=== PATIENT | female | born 1995 | race Caucasian/White ===

== ENCOUNTER 2021-02-03 11:35 | Emergency (ER) | payer BC ==
[2021-02-03] MEDS ORDERED: SODIUM CHLORIDE 0.9% 50 ML IVPB ONE (12:30)
--- NOTE | 2021-02-03 12:33 | ED ---
General Adult HPI - General Chief complaint: Upper Respiratory Infection Stated complaint: 11 wks preg/covid+ Time Seen by Provider: 02/03/21 11:52 Source: patient, RN notes reviewed Mode of arrival: ambulatory Limitations: no limitations - History of Present Illness Initial comments: 25-year-old female resents to the emergency room for a chief complaint of COVID +. Pt states that when she woke up this morning she had a slight cough. She went to work at [employer] where they did a rapid test. She reports that it came back positive. She does have a copy of the results. Patient was told by her doctor to come into the emergency room for antibody infusion because she is 11 weeks . Patient denies shortness of breath or chest pain.patient denies any related complaints such as bleeding or cramping Patient has no other complaints at this time including shortness of breath, chest pain, abdominal pain, nausea or vomiting, headache, or visual changes. - Related Data Allergies Allergy/AdvReac Type Severity Reaction Status Date / Time No Known Allergies Allergy Verified 02/03/21 11:40 Review of Systems ROS Statement: Those systems with pertinent positive or pertinent negative responses have been documented in the HPI. ROS Other: All systems not noted in ROS Statement are negative. Past Medical History Past Medical History: No Reported History History of Any Multi-Drug Resistant Organisms: None Reported Past Surgical History: No Surgical Hx Reported Past Psychological History: No Psychological Hx Reported Smoking Status: Never smoker Past Alcohol Use History: None Reported General Exam Limitations: no limitations General appearance: alert, in no apparent distress Head exam: Present: atraumatic Eye exam: Present: normal appearance, PERRL, EOMI. Absent: scleral icterus, conjunctival injection ENT exam: Present: normal exam, mucous membranes moist Neck exam: Present: normal inspection, full ROM. Absent: tenderness Respiratory exam: Present: normal lung sounds bilaterally. Absent: respiratory distress, wheezes Cardiovascular Exam: Present: regular rate, normal rhythm, normal heart sounds Course Vital Signs 02/03/21 11:37 Temperature 98.8 F Pulse Rate 95 Respiratory 22 Rate Blood Pressure 117/73 O2 Sat by Pulse 100 Oximetry Medical Decision Making - Medical Decision Making Patient was able to produce Covid positive result. She was given antibodies. She can be discharged home. She is to return here for any worsening symptoms. Disposition Clinical Impression: COVID-19 Disposition: HOME SELF-CARE Condition: Good Instructions (If sedation given, give patient instructions): Coronavirus Disease 2019 (COVID-19) Additional Instructions: Please take Tylenol for fever. Drink plenty of fluids. Follow-up with your doctor. Return to the emergency room for any worsening symptoms. Is patient prescribed a controlled substance at d/c from ED?: No Referrals: Maynor Nelson DO [Primary Care Provider] - 1-2 days Time of Disposition: 12:29
[2021-02-03] MEDS ORDERED: SOTROVIMAB (EUA) 500 MG in SODIUM CHLORIDE 0.9% 100 ML IVPB ONE (13:00)
[2021-02-03 14:41] VITALS: BP 128/70; PULSE 85; RESP 16; TEMP 98.2
== END 2021-02-03 14:39 | disposition home or self-care (01) ==
LOC: EC 11:35
DX: O98.511 Other viral diseases complicating pregnancy, first trimester (principal); U07.1 COVID-19; Z3A.11 11 weeks gestation of pregnancy
CPT/HCPCS: 99283; Q0247

== ENCOUNTER 2021-08-19 02:35 | Inpatient (IN) | payer BC ==
[2021-08-19] MEDS ORDERED: AMPICILLIN 2,000 MG in SODIUM CHLORIDE 0.9% 100 ML IVPB STA (04:20)
[2021-08-19] MEDS ORDERED: OXYTOCIN 10 UNIT/ML 1 ML VIAL IM PRN (04:24)
[2021-08-19] MEDS ORDERED: CARBOPROST TROMETHAMINE 250 MCG/ML 1 ML AMP IM PRN (04:24)
[2021-08-19] MEDS ORDERED: LIDOCAINE 0.5% (PF) 5 MG/ML (50 ML SDV) SQ PRN (04:24)
[2021-08-19] MEDS ORDERED: METHYLERGONOVINE 0.2 MG/ML 1 ML AMP IM PRN (04:24)
[2021-08-19] MEDS ORDERED: TERBUTALINE 1 MG/ML VIAL SQ PRN (04:24)
[2021-08-19] MEDS ORDERED: LACTATED RINGERS 1,000 ML IV SCH (04:30)
[2021-08-19 04:37] LABS: Basophils # (A) 0.1 k/uL (0-0.2); Basophils % (A) 1 %; Eosinophils # (A) 0.2 k/uL (0-0.7); Eosinophils % (A) 1 %; HCT 35.2 % (34.0-46.0); HGB 11.5 gm/dL (11.4-16.0); Lymphocytes # (A) 2.6 k/uL (1.0-4.8); Lymphocytes % (A) 13 %; MCH 30.9 pg (25.0-35.0); MCHC 32.7 g/dL (31.0-37.0); MCV 94.5 fL (80.0-100.0); Mean Platelet Volume 7.7; Monocytes # (A) 0.9 k/uL (0-1.0); Monocytes % (A) 4 %; Neutrophils # (A) 16.7 k/uL (1.3-7.7); Neutrophils % (A) 80 %; Platelet Count 314 k/uL (150-450); RBC 3.72 m/uL (3.80-5.40); WBC 20.8 k/uL (3.8-10.6)
--- NOTE | 2021-08-19 05:31 | P.HPOB ---
History of Present Illness H&P Date: 08/19/21 Chief Complaint: Labor at 39-4/7 weeks This is a 26-year-old 1 para 0 woman with an estimated due date of 08/22/2021 who is admitted at 39-3/7 weeks gestation in active labor. She denies vaginal bleeding or leakage of fluids. She had progressive cervical dilation during observation in triage and therefore is admitted. She is known group B strep positive. complicated by covert in the early . She's been followed with testing which is all been reassuring. Laboratory data: Blood type O+, antibody screen negative, rubella immune, VDRL nonreactive, hep Viktoriya surface antigen negative, HIV negative, gonorrhea and clinic cultures negative, glucose tolerance testing within normal limits, group B strep positive. Review of Systems All systems: negative Past Medical History Past Medical History: No Reported History History of Any Multi-Drug Resistant Organisms: None Reported Past Surgical History: No Surgical Hx Reported Past Anesthesia/Blood Transfusion Reactions: No Reported Reaction Past Psychological History: No Psychological Hx Reported Smoking Status: Never smoker Past Alcohol Use History: None Reported - Past Family History Father History Unknown: Yes Medications and Allergies Home Medications Medication Instructions Recorded Confirmed Type Aspirin 1 tab PO DAILY 08/19/21 08/19/21 History Pnv No.154/Iron Fum/Folic Acid 1 tab PO DAILY 08/19/21 08/19/21 History [ Plus Vitamin Tablet] Allergies Allergy/AdvReac Type Severity Reaction Status Date / Time No Known Allergies Allergy Verified 08/19/21 02:46 Exam Vital Signs Temp Pulse Resp BP 08/19/21 04:20 97.5 F L 62 16 135/85 Intake and Output 08/18/21 08/18/21 08/19/21 14:59 22:59 06:59 Other: Weight 68.492 kg Upon my initial evaluation targeted exam is performed. Patient is extremely uncomfortable with regular contractions. Cervix is 9 cm dilated 100% effaced and the vertex in the -1 station. Artificial rupture of membranes undertaken and clear fluid is noted. heart tones are category 1. She is megan spontaneously every 3-4 minutes. Results Result Diagrams: 08/19/21 04:30 Abnormal Lab Results - Last 24 Hours (Table) 08/19/21 Range/Units 04:30 WBC 20.8 H (3.8-10.6) k/uL RBC 3.72 L (3.80-5.40) m/uL Neutrophils # 16.7 H (1.3-7.7) k/uL Assessment and Plan (1) Spontaneous onset of labor Current Visit: Yes Status: Acute Code(s): ZVD7899 - SNOMED Code(s): 87761404 (2) GBS (group B Streptococcus carrier), +RV culture, currently Current Visit: Yes Status: Acute Code(s): O99.820 - STREPTOCOCCUS B CARRIER STATE COMPLICATING SNOMED Code(s): 1343035753258 (3) 39 weeks gestation of Current Visit: Yes Status: Acute Code(s): Z3A.39 - 39 WEEKS GESTATION OF SNOMED Code(s): 97139025 Plan: 26-year-old 1 para 0 woman admitted at 39-3/7 weeks gestation in active labor. She is group B strep positive. status currently reassuring by external monitoring. She is receiving prophylactic antibiotics. Anticipate normal spontaneous vaginal delivery.
[2021-08-19] MEDS ORDERED: OXYTOCIN 30 UNITS/500 ML NS 30 UNIT in SALINE 1 500ML.BAG IV SCH ×2 (07:15→08:15)
[2021-08-19] MEDS ORDERED: LANOLIN CREAM 5 GM TUBE TOPICAL PRN (08:07)
[2021-08-19] MEDS ORDERED: diphenhydrAMINE 50 MG/ML 1 ML VIAL IVP PRN ×2 (08:07)
[2021-08-19] MEDS ORDERED: ZOLPIDEM 5 MG TAB PO PRN (08:07)
[2021-08-19] MEDS ORDERED: SIMETHICONE 80 MG CHEWABLE PO PRN (08:07)
[2021-08-19] MEDS ORDERED: diphenhydrAMINE 25 MG CAP PO PRN (08:07)
[2021-08-19] MEDS ORDERED: HYDROCORTISONE 2.5% RECTAL CREAM 30 GM TUBE RECTAL PRN (08:07)
[2021-08-19] MEDS ORDERED: diphenhydrAMINE 50 MG CAP PO PRN (08:07)
[2021-08-19] MEDS ORDERED: BENZOCAINE/MENTHOL SPRAY 1 GM/SPRAY AEROSOL TOPICAL PRN (08:07)
--- NOTE | 2021-08-19 08:07 | P.PROBDLV ---
Vaginal Delivery Note - . Vaginal Delivery Note: Findings: Male infant in the vertex left occiput anterior position with Apgars of 9 at 1 minute and 9 at 5 minutes weighing 7 lbs. 11 oz., 3495 g. Third- degree perineal laceration. Intact, three-vessel cord. EBL 200 mL's. Delivery summary: This is a 26-year-old 1 para 0 woman who presented at 39-3/7 weeks gestation in spontaneous active labor. She progressed from 3 cm to 4-1/2 cm in triage and was admitted. She had an unremarkable progression to 9 cm dilated at which time artificial rupture of membranes is undertaken. Clear fluid was noted. She progressed to complete cervical dilation and began pushing with moderate maternal effort. Pitocin augmentation was ultimately initiated as contractions were irregular and spaced out. She had a 1 hour and 40 minutes second stage of labor. With she was repositioned, prepped and draped in the modified Nura position. Lidocaine was infused in the perineum for maternal analgesia. With additional maternal effort the head did deliver from the left occiput anterior position. The rest the delivered onto the field without difficulty. The nose and mouth were bulb suctioned and the was placed on the maternal abdomen. Eventually the cord was clamped and cut. Apgars were 9 at 1 minute and 9 at 5 minutes. The perineum was inspected and an irregular laceration was noted. 3-0 Vicryl suture was utilized to reapproximate the perirectal capsule in an interrupted fashion. The remainder of the laceration was then closed with an additional 3-0 Vicryl suture. An intact, three-vessel cord placenta was then delivered after approximately 10 minute third stage of labor. The rest of the vagina was inspected and no further lacerations were noted. The uterus was massaged and noted to be firm at the level of the umbilicus. She did receive Pitocin following delivery of the placenta. Careful vaginal and rectal exam were performed and the rectal mucosa was noted to be intact. All counts were correct and EBL was approximately 200 hours. Both mother and infant were doing well post delivery in the room.
[2021-08-19] MEDS: IBUPROFEN 600 MG TAB PO PRN ×3 (08:21→23:21)
[2021-08-19] MEDS: SENNOSIDES-DOCUSATE SODIUM 1 EACH TAB PO SCH ×2 (08:21→20:12)
[2021-08-19] MEDS ORDERED: AMPICILLIN 1,000 MG in SODIUM CHLORIDE 0.9% 50 ML IVPB SCH (08:30)
[2021-08-20 06:35] LABS: Anisocytosis Slight; HCT 47.6 % (34.0-46.0); MCH 36.6 pg (25.0-35.0); MCHC 33.4 g/dL (31.0-37.0); Macrocytosis Marked; Mean Platelet Volume 8.9; Platelet Count 267 k/uL (150-450); RBC 4.34 m/uL (3.80-5.40); RDW 16.3 % (11.5-15.5); WBC 18.8 k/uL (3.8-10.6)
[2021-08-20 06:37] LABS: HGB 15.9 gm/dL (11.4-16.0)
[2021-08-20 06:38] LABS: MCV 109.7 fL (80.0-100.0)
[2021-08-20 07:04] LABS: Anisocytosis (M) Present; Eosinophils # (M) 0.19 k/uL (0-0.7); Lymphocytes # (M) 5.64 k/uL (1.0-4.8); Monocytes # (M) 1.32 k/uL (0-1.0); Neutrophils # (M) 11.66 k/uL (1.3-7.7); Neutrophils % (M) 62 %; Nucleated Red Blood Cells 0 /100 WBC (0-0); Total Cells Counted 100
[2021-08-20] MEDS: ACETAMINOPHEN TAB 325 MG TAB PO PRN ×2 (08:22→19:33)
[2021-08-20] MEDS: SENNOSIDES-DOCUSATE SODIUM 1 EACH TAB PO SCH ×2 (09:51→22:23)
--- NOTE | 2021-08-20 11:21 | P.PNOBGVD ---
Subjective - Subjective Patient reports: Reports appetite normal, Reports voiding normally, Reports pain well controlled, Reports ambulating normally : doing well Objective - Latest Vital Signs Latest vital signs: Vital Signs Temp Pulse Resp BP Pulse Ox 08/20/21 08:00 98.4 F 66 17 111/70 99 08/20/21 00:00 98.8 F 87 16 109/70 98 08/19/21 20:00 98.6 F 86 15 139/91 08/19/21 16:00 98.7 F 77 16 107/72 98 08/19/21 11:59 98.1 F 64 16 126/72 97 Intake and Output 08/19/21 08/20/21 08/20/21 22:59 06:59 14:59 Intake Total 480 Balance 480 Intake: Oral 480 Other: # Voids 2 2 1 - Exam Extremities: Present: normal Abdomen: Present: normal appearance, soft Uterus: Present: normal, firm (The uterine fundus is Connick and nontender below the umbilicus.) - Labs Labs: Abnormal Lab Results - Last 24 Hours (Table) 08/20/21 Range/Units 05:50 WBC 18.8 H (3.8-10.6) k/uL Hct 47.6 H (34.0-46.0) % MCV 109.7 H D (80.0-100.0) fL MCH 36.6 H (25.0-35.0) pg RDW 16.3 H (11.5-15.5) % Neutrophils # (Manual) 11.66 H (1.3-7.7) k/uL Lymphocytes # (Manual) 5.64 H (1.0-4.8) k/uL Monocytes # (Manual) 1.32 H (0-1.0) k/uL Macrocytosis Marked A Assessment and Plan (1) Normal spontaneous vaginal delivery Current Visit: Yes Status: Acute Code(s): O80 - ENCOUNTER FOR FULL-TERM UNCOMPLICATED DELIVERY SNOMED Code(s): 18781707 Plan: Continue routine care. The infant remains under observation for lack of adequate group B strep prophylaxis. He will require a 48 hours day. As a result, I anticipate discharge home tomorrow pending no complications.
[2021-08-20] MEDS: IBUPROFEN 600 MG TAB PO PRN (13:53)
[2021-08-21 09:29] VITALS: BP 118/72; PULSE 74; RESP 16; TEMP 98.7
[2021-08-21] MEDS: SENNOSIDES-DOCUSATE SODIUM 1 EACH TAB PO SCH (09:29)
--- NOTE | 2021-08-21 10:44 | P.DS ---
Providers Date of admission: 08/19/21 03:58 Expected date of discharge: 08/21/21 Attending physician: Margareth Cunningham Primary care physician: Stated None - Discharge Diagnosis(es) (1) Normal spontaneous vaginal delivery Current Visit: Yes Status: Acute Hospital Course: The patient is a 26-year-old 1 para 0 admitted at 39-3/7 weeks by good dating parameters perches admitted in active labor with all signs reassuring. She is group B strep positive. Her only Occasionally the was Covid for which she had testing weekly after 32 weeks which was reassuring in nature. On labor and delivery, she had antibody prophylaxis started and progressed relatively rapidly through labor at which time she underwent artificial rupture of membranes for clear fluid. She did have Pitocin augmentation started as her contraction pattern spaced about ultimately pushed to a normal spontaneous vaginal delivery of a viable 7 lbs. 11 oz. baby boy with Apgars of 9 at 1 minute and 9 at 5 minutes. She did sustain a third degree laceration which was repaired in standard fashion. Her course was unremarkable with vital signs remained stable and her temperature was afebrile throughout. The infant had cultures drawn as antibody prophylaxis was not adequate and required a 48 hour observation. As a result, she was deemed stable for discharge on day #2 and was discharged home to follow-up in the office in 6 weeks' time routinely. Discharge instructions included calling for any significantly increased bleeding or foul-smelling lochia, significantly increased fever or abdominal pain, perineal complaints, breast complaints, or anything else that concerned her. She was additionally instructed to have nothing in the vagina for at least 6 weeks time to include intercourse. She understood her instructions and agrees to follow up as noted above. Discharge medications included continue vitamins as she has opted to breast-feed as well as [id number] analgesic pain medications as needed. Maternal blood type is O+ and rubella status is immune. Procedures: #1. Antibiotic prophylaxis #2. Artificial rupture of membranes #3. Pitocin augmentation #4. Normal spontaneous vaginal delivery #5. Repair of third- degree perineal laceration Patient Condition at Discharge: Stable Plan - Discharge Summary New Discharge Prescriptions: No Action Aspirin 1 tab PO DAILY Pnv No.154/Iron Fum/Folic Acid [ Plus Vitamin Tablet] 1 tab PO DAILY Discharge Medication List Aspirin 1 tab PO DAILY 08/19/21 [History] Pnv No.154/Iron Fum/Folic Acid [ Plus Vitamin Tablet] 1 tab PO DAILY 08/19/21 [History] Follow up Appointment(s)/Referral(s): Margareth Cunningham DO [Doctor of Osteopathic Medicine] - 6 Weeks Discharge Disposition: HOME SELF-CARE
== END 2021-08-21 11:30 | disposition home or self-care (01) | DRG 768 ==
LOC: FBPOP 02:35 → 4FBP 03:58
PROVIDERS: ADMIT Obstetrics & Gynecology; ATTEND Obstetrics & Gynecology Obstetrics
PROC: 10907ZC Drainage of Amniotic Fluid, Therapeutic from Products of Conception, Via Natural or Artificial Opening (ICD-10-PCS; principal; 2021-08-19)
PROC: 0DQR0ZZ Repair Anal Sphincter, Open Approach (ICD-10-PCS; principal; 2021-08-19)
PROC: 10E0XZZ Delivery of Products of Conception, External Approach (ICD-10-PCS; principal; 2021-08-19)
DX: O99.824 Streptococcus B carrier state complicating childbirth (principal); O70.20 Third degree perineal laceration during delivery, unspecified; Z37.0 Single live birth; Z3A.39 39 weeks gestation of pregnancy; Z28.310 Unvaccinated for COVID-19; Z79.82 Long term (current) use of aspirin; Z86.16 Personal history of COVID-19
CPT/HCPCS: 59025; 85025; 86850; 86900; 86901; 99213

== ENCOUNTER 2023-06-07 05:51 | Inpatient (IN) | payer BC ==
[2023-06-07] MEDS ORDERED: CARBOPROST TROMETHAMINE 250 MCG/ML 1 ML AMP IM PRN (06:09)
[2023-06-07] MEDS ORDERED: METHYLERGONOVINE 0.2 MG/ML 1 ML AMP IM PRN (06:09)
[2023-06-07] MEDS ORDERED: TERBUTALINE 1 MG/ML VIAL SQ PRN (06:09)
[2023-06-07] MEDS ORDERED: OXYTOCIN 10 UNIT/ML 1 ML VIAL IM PRN (06:09)
[2023-06-07] MEDS ORDERED: TRANEXAMIC 1,000 MG/100ML-NACL 1,000 MG in EMPTY BAG 1 BAG IV PRN (06:09)
[2023-06-07] MEDS ORDERED: miSOPROStoL 200 MCG TAB PO PRN (06:09)
[2023-06-07 06:26] LABS: Basophils # (A) 0.1 k/uL (0-0.2); Basophils % (A) 0 %; Eosinophils # (A) 0.2 k/uL (0-0.7); Eosinophils % (A) 1 %; HGB 11.1 gm/dL (11.4-16.0); Lymphocytes # (A) 2.3 k/uL (1.0-4.8); Lymphocytes % (A) 17 %; MCH 30.5 pg (25.0-35.0); MCHC 32.6 g/dL (31.0-37.0); MCV 93.7 fL (80.0-100.0); Monocytes # (A) 0.7 k/uL (0-1.0); Monocytes % (A) 6 %; Neutrophils # (A) 9.9 k/uL (1.3-7.7); Neutrophils % (A) 74 %; Platelet Count 297 k/uL (150-450); RBC 3.62 m/uL (3.80-5.40); RDW 13.5 % (11.5-15.5); WBC 13.3 k/uL (3.8-10.6)
[2023-06-07] MEDS: LACTATED RINGERS 1,000 ML IV SCH (06:27)
[2023-06-07] MEDS: OXYTOCIN 30 UNITS/500 ML NS 30 UNIT in SALINE 1 500ML.BAG IV SCH (06:28)
[2023-06-07] MEDS: AMPICILLIN 2,000 MG in SODIUM CHLORIDE 0.9% 100 ML IVPB STA (06:34)
[2023-06-07] MEDS ORDERED: NALBUPHINE 10 MG/ML (10 ML MDV) IV PRN (09:13)
[2023-06-07] MEDS: AMPICILLIN 1,000 MG in SODIUM CHLORIDE 0.9% 50 ML IVPB SCH (10:30)
[2023-06-07] MEDS: LIDOCAINE 0.5% (PF) 5 MG/ML (50 ML SDV) SQ PRN (12:10)
[2023-06-07] MEDS: IBUPROFEN 600 MG TAB PO STA (12:44)
[2023-06-07] MEDS ORDERED: diphenhydrAMINE 50 MG/ML 1 ML VIAL IVP PRN ×2 (13:13)
[2023-06-07] MEDS ORDERED: diphenhydrAMINE 50 MG CAP PO PRN (13:13)
[2023-06-07] MEDS ORDERED: BENZOCAINE/MENTHOL SPRAY 1 GM/SPRAY AEROSOL TOPICAL PRN (13:13)
[2023-06-07] MEDS ORDERED: ZOLPIDEM 5 MG TAB PO PRN (13:13)
[2023-06-07] MEDS ORDERED: HYDROCORTISONE 2.5% RECTAL CREAM 30 GM TUBE RECTAL PRN (13:13)
[2023-06-07] MEDS ORDERED: LANOLIN CREAM 1 GM TUBE TOPICAL PRN (13:13)
[2023-06-07] MEDS ORDERED: SIMETHICONE 80 MG CHEWABLE PO PRN (13:13)
[2023-06-07] MEDS ORDERED: diphenhydrAMINE 25 MG CAP PO PRN (13:13)
--- NOTE | 2023-06-07 13:13 | P.PROBDLV ---
Vaginal Delivery Note - . Vaginal Delivery Note: Findings viable male , 7-13.6, at 1204, Apgars of 8 and 9 at 1 and 5 minutes respectively. 28-year-old G2, P1 at 40-2/7 weeks that presents to labor and delivery for scheduled induction of labor secondary to postdates. Patient is admitted to labor and delivery and Pitocin induction of labor has begun. Amniotomy is performed and clear fluid was obtained. Patient made good progress through labor declining analgesia throughout. Patient progressed to complete. Once complete patient began pushing and with excellent maternal effort brought the down to a presentation. The head was delivered, and a mild shoulder dystocia was noted after delivery of the head Nura and suprapubic pressure were used to free the anterior shoulder from the pubic bone. Spontaneous cry was noted at . The umbilical cord was doubly clamped and cut after 2-minute delay, the placenta was delivered spontaneously intact with a three-vessel cord being noted. Inspection the patient's vaginal vault second- degree midline laceration was appreciated. This was instilled with lidocaine and repaired in usual fashion with 3-0 Rapide. After repair was completed hemostasis was noted. Uterus noted be firm below the umbilicus. Estimated blood loss 200 cc All counts were noted be correct x 2 at the end of the delivery. Patient and infant tolerated delivery well and are resting comfortably.
[2023-06-07] MEDS: ACETAMINOPHEN TAB 325 MG TAB PO PRN (14:24)
--- NOTE | 2023-06-07 17:32 | P.HPOB ---
History of Present Illness H&P Date: 06/07/23 Chief Complaint: IUP at 40-1/7 weeks 28-year-old G2, P1 at 40 1/7 weeks that presents for induction of labor secondary to postdates. Patient has been receiving routine care which has been essentially uncomplicated. Patient is without concerns this morning. Patient notes good movement movement, denies contractions vaginal bleeding or loss of fluid. On blood work this patient has a blood type of O+, rubella status immune, hepatitis B surface engine negative, HIV negative, RPR is nonreactive, grew beta strep culture is positive. Review of Systems Constitutional: Denies chills, Denies fatigue, Denies fever Ears, nose, mouth and throat: Denies headache Cardiovascular: Reports leg edema Respiratory: Denies dyspnea Gastrointestinal: Denies constipation, Denies diarrhea, Denies nausea, Denies vomiting Genitourinary: Reports Past Medical History Past Medical History: No Reported History History of Any Multi-Drug Resistant Organisms: None Reported Past Surgical History: No Surgical Hx Reported Past Anesthesia/Blood Transfusion Reactions: No Reported Reaction Past Psychological History: No Psychological Hx Reported Smoking Status: Never smoker Past Alcohol Use History: None Reported Past Drug Use History: None Reported - Past Family History Father History Unknown: Yes Medications and Allergies Home Medications Medication Instructions Recorded Confirmed Type Aspirin 1 tab PO DAILY 08/19/21 06/07/23 History Pnv No.154/Iron Fum/Folic Acid 1 tab PO DAILY 08/19/21 06/07/23 History [ Plus Vitamin Tablet] Allergies Allergy/AdvReac Type Severity Reaction Status Date / Time No Known Allergies Allergy Verified 08/19/21 02:46 Exam Osteopathic Statement: *. No significant issues noted on an osteopathic structural exam other than those noted in the History and Physical/Consult. Vital Signs Temp Pulse Resp BP Pulse Ox 06/07/23 06:07 96.9 F L 83 16 121/66 98 Intake and Output 06/06/23 06/07/23 06/07/23 22:59 06:59 14:59 Other: Weight 69.4 kg Targeted physical exam is performed this date General is a well-nourished well- developed female in no acute distress, breathing is noted to be nonlabored, heart has a regular rate and rhythm, abdomen is gravid, on cervical exam she is 4/70/-2 station amniotomy is performed and clear fluid was obtained. heart tones are noted to be category 1 and she is megan irregularly. Results Result Diagrams: 06/07/23 06:15 Abnormal Lab Results - Last 24 Hours (Table) 06/07/23 Range/Units 06:15 WBC 13.3 H (3.8-10.6) k/uL RBC 3.62 L (3.80-5.40) m/uL Hgb 11.1 L (11.4-16.0) gm/dL Neutrophils # 9.9 H (1.3-7.7) k/uL Assessment and Plan (1) Post-dates Current Visit: Yes Status: Acute Code(s): O48.0 - POST-TERM SNOMED Code(s): 27210484 Plan: 28-year-old G2, P1 at 40-1/7 weeks presents for induction of labor. Patient is admitted and Pitocin induction of labor has begun per hospital protocol. Options for analgesia are discussed including epidural, nitrous, Nubain. Patient will consider. Anticipate spontaneous vaginal delivery later today.
[2023-06-07 18:08] VITALS: RESP 16
[2023-06-07] MEDS: SENNOSIDES-DOCUSATE SODIUM 1 EACH TAB PO SCH (20:11)
[2023-06-07] MEDS: IBUPROFEN 600 MG TAB PO SCH (20:11)
[2023-06-08 09:20] VITALS: BP 113/73; PULSE 83; TEMP 98.1
--- NOTE | 2023-06-08 09:27 | P.DS ---
Providers Date of admission: 06/07/23 05:51 Expected date of discharge: 06/08/23 Attending physician: Margareth Cunningham Primary care physician: Stated None - Discharge Diagnosis(es) (1) Post-dates Current Visit: Yes Status: Acute (2) GBS (group B Streptococcus carrier), +RV culture, currently Current Visit: No Status: Acute (3) Normal spontaneous vaginal delivery Current Visit: No Status: Acute (4) Perineal laceration during delivery Current Visit: No Status: Acute Hospital Course: This is a 28-year-old G2 now P2 that presented to labor and delivery on 06/06 at 40-2/7 weeks for scheduled induction of labor secondary to postdates. Patient was admitted and Pitocin induction of labor was begun. Amniotomy was performed and clear fluid was obtained. Patient made good progress through labor declining analgesia. Patient progressed to complete began pushing and had a normal spontaneous vaginal delivery with a mild shoulder dystocia that was relieved after Nura and suprapubic pressure was applied. X-ray of the infant's clavicle revealed no fracture and appears to be moving the left arm without difficulty. Patient was counseled on delivery findings. All questions were answered. Patient delivered a viable male in at 1204, weight of 7 pounds 13.6 ounces, Apgars of 8 and 9 at 1 and 5 minutes respectiv naomy. Patient did sustain a second-degree midline laceration which was repaired in the usual fashion with 3-0 Rapide after instillation of lidocaine. Patient's lochia has been minimal to moderate since delivery. Her pain is well- controlled. She states she is breast-feeding without difficulty. She denies nausea or vomiting is tolerating a regular diet without difficulty. Patient would like discharge home at 24 hours Patient Condition at Discharge: Good Plan - Discharge Summary New Discharge Prescriptions: No Action Aspirin 1 tab PO DAILY Pnv No.154/Iron Fum/Folic Acid [ Plus Vitamin Tablet] 1 tab PO DAILY Discharge Medication List Aspirin 1 tab PO DAILY 08/19/21 [History] Pnv No.154/Iron Fum/Folic Acid [ Plus Vitamin Tablet] 1 tab PO DAILY 08/19/21 [History] Follow up Appointment(s)/Referral(s): Margareth Cunningham DO [Doctor of Osteopathic Medicine] - 6 Weeks Patient Instructions/Handouts: Vaginal Delivery (GEN), Vaginal Delivery (DC) Activity/Diet/Wound Care/Special Instructions: No intercourse, tampons or douching. No heavy lifting greater than a gallon of milk. No driving for two weeks. Call with any fever, shakes or chills, with any pain not alleviated by over the counter meds, or with any quesions or concerns. Discharge Disposition: HOME SELF-CARE
[2023-06-08] MEDS: PRENATAL VIT-IRON-FOLIC ACID 1 EACH TABLET PO SCH (10:46)
== END 2023-06-08 13:35 | disposition home or self-care (01) | DRG 807 ==
LOC: 4FBP 05:51
PROVIDERS: ADMIT Obstetrics & Gynecology Obstetrics; ATTEND Obstetrics & Gynecology Obstetrics
PROC: 10E0XZZ Delivery of Products of Conception, External Approach (ICD-10-PCS; principal; 2023-06-07)
PROC: 0KQM0ZZ Repair Perineum Muscle, Open Approach (ICD-10-PCS; 2023-06-07)
PROC: 3E033VJ Introduction of Other Hormone into Peripheral Vein, Percutaneous Approach (ICD-10-PCS; 2023-06-07)
PROC: 10907ZC Drainage of Amniotic Fluid, Therapeutic from Products of Conception, Via Natural or Artificial Opening (ICD-10-PCS; 2023-06-07)
PROC: 10S0XZZ Reposition Products of Conception, External Approach (ICD-10-PCS; 2023-06-07)
DX: O99.824 Streptococcus B carrier state complicating childbirth (principal); Z37.0 Single live birth; O70.1 Second degree perineal laceration during delivery; O48.0 Post-term pregnancy; O66.0 Obstructed labor due to shoulder dystocia; Z3A.40 40 weeks gestation of pregnancy; Z79.82 Long term (current) use of aspirin
CPT/HCPCS: 85025; 86850; 86900; 86901